=== PATIENT | male | born 2000 | race Caucasian/White ===

== ENCOUNTER → 2021-06-14 | Outpatient (CLI) | payer BC | LOC: KOH-I 10:30 | DX: R10.11 Right upper quadrant pain (principal); K76.0 Fatty (change of) liver, not elsewhere classified | CPT/HCPCS: 76705 ==

== ENCOUNTER 2021-10-19 21:44 | Emergency (ER) | payer BC ==
[2021-10-19 22:43] LABS: HEMOGLOBIN 15.9 gm/dl (14.0-17.5); RED BLOOD COUNT 5.45 M/UL (4.20-5.50); WHITE BLOOD COUNT 6.9 K/UL (4.5-11.0)
[2021-10-19 23:02] LABS: BUN/CREATININE RATIO 13 (0-10)
[2021-10-19] MEDS ORDERED: ZITHROMAX250 MG PO (23:54)
[2021-10-19] MEDS ORDERED: BENZONATATE200 MG PO (23:54)
== END 2021-10-20 | disposition home or self-care (01) ==
LOC: ER1 21:44
PROVIDERS: Physician Assistant
DX: U07.1 COVID-19 (principal)
CPT/HCPCS: 0240U; 71045; 80053; 81001; 85025; 85379; 85652; 86140; 87081; 87086; 87880; 99285